=== PATIENT | female | born 2000 | race Caucasian/White ===

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

== ENCOUNTER 2022-06-05 18:49 | Outpatient (CLI) | payer MEDICAID ==
--- NOTE | 2022-06-06 03:10 | Ultrasound Report ---
PROCEDURE: Pelvic w/Transvaginal INDICATIONS: DEEP DYSPAREUNIA TECHNIQUE: Real-time scanning was performed of the pelvic organs, with image documentation. Additional endovagi nal scanning was necessary due to incomplete visualization of the adnexal and endometrial structures by transabdominal scanning. COMPARISON: CT abdomen pelvis 11/26/2017. FINDINGS: Uterus: Uterus is retroverted and measures 7.6 x 3.2 x 4.2 cm. The endometrium measures up to 0.3 cm . No uterine mass lesions. Ovaries: The right ovary measures 3.1 x 1.5 x 1.7 cm, with a calculated ovarian volume of 4.2 cc. T he left ovary measures 4.1 x 3.6 x 5.3 cm, with a calculated ovarian volume of 40.7 cc. The ovaries have a normal sonographic appearance. Less than 12 follicles can be seen in each ovary. No adnexal masses. There is an anechoic simple cyst within the left ovary measuring up to 3.5 x 3.0 x 3.5 cm. Th ere is patent arterial and venous flow within the ovaries bilaterally. Other: No pathologic free abdominal or pelvic fluid. IMPRESSION: 1. Simple-appearing left ovarian cyst likely represents a follicular cyst. 2. No acute sonographic abnormality in the pelvis. Reviewed by: Ranjeet Flores MD on 06/06/2022 3:09 AM PST Approved by: Ranjeet Flores MD on 06/06/2022 3:09 AM PST Station ID: [id number]
== END 2022-06-05 18:50 | disposition home or self-care (01) ==
LOC: DI 18:49
PROVIDERS: ATTEND Nurse Practitioner Family
DX: N83.292 Other ovarian cyst, left side (principal)